=== PATIENT | male | born 1960 | race Caucasian/White ===

== ENCOUNTER 2018-12-18 10:29 | Emergency (ER) | payer SELFPAY ==
[~2018-12-18] VITALS: Ht 180.3 cm; Wt 95.3 kg
[2018-12-18] MEDS ORDERED: CEPHALEXIN 250 MG CAPSULE. PO STA (11:07)
[2018-12-18] MEDS ORDERED: IV NORMAL SALINE 1000ML BAG 1,000 ML IV ONE (11:15)
[2018-12-18] MEDS ORDERED: HYDROcodone/APAP 5/325MG 1 TAB TABLET PO ONE (11:15)
--- NOTE | 2018-12-18 11:18 | PHYS DOC ---
Past Medical History Past Medical History: Other Additional Past Medical Histor: Brain tumor,jaw fx,R)f.a.fx,multiple hernias Past Surgical History: Other Additional Past Surgical Histo: Fx.R)forearm Alcohol Use: Heavy Drug Use: None Adult General Chief Complaint Chief Complaint: OTHER COMPLAINTS HPI HPI Patient is a 58 year old male who presents with many complaints. He is very talkative and rambling. He states his feet hurt and that he wants pain meds. He also states that he has a brain tumor, CHF, a hiatal hernia and that is dying. He is not being treated for these conditions and is not taking any medications. Pt states he is currently detoxing from alcohol. His last drink was 3 days ago. He denies any seizures, CP or SOA. Review of Systems Review of Systems Constitutional: Denies fever or chills [] Eyes: Denies change in visual acuity, redness, or eye pain [] HENT: Denies nasal congestion or sore throat [] Respiratory: Denies cough or shortness of breath [] Cardiovascular: No additional information not addressed in HPI [] GI: Denies abdominal pain, nausea, vomiting, bloody stools or diarrhea [] : Denies dysuria or hematuria [] Musculoskeletal: Denies back pain or joint pain, complains of foot pain [] Integument: Denies rash or skin lesions [] Neurologic: Denies headache, focal weakness or sensory changes [] Endocrine: Denies polyuria or polydipsia [] All other systems were reviewed and found to be within normal limits, except as documented in this note. Current Medications Current Medications Current Medications Medications (Trade) Dose Ordered Sig/Sebastien Start Time Stop Time Status Last Admin Dose Admin Acetaminophen/ Hydrocodone Bitart (Lortab 5/325) 2 tab 1X ONCE 12/18/18 11:15 12/18/18 11:27 DC 12/18/18 12:10 2 TAB Cephalexin HCl (Keflex) 500 mg 1X STAT 12/18/18 11:07 12/18/18 11:27 DC 12/18/18 12:11 500 MG Lorazepam (Ativan) 1 mg 1X ONCE 12/18/18 11:15 12/18/18 11:27 DC 12/18/18 12:10 1 MG Sodium Chloride 1,000 ml @ 1,000 mls/hr 1X ONCE 12/18/18 11:15 4/1/19 12:14 DC 12/18/18 12:08 1,000 MLS/HR Allergies Allergies Allergies Coded Allergies Type Severity Reaction Last Updated Verified No Known Drug Allergies 12/18/18 No Physical Exam Physical Exam Constitutional: Well developed disheveled and malodorous slurred speech consistent with known alcohol intoxication HENT: Normocephalic, atraumatic, bilateral external ears normal, oropharynx moist, no oral exudates, nose normal. [] Eyes: PERRLA, EOMI, conjunctiva normal, no discharge. [] Neck: Normal range of motion, no tenderness, supple, no stridor. [] Cardiovascular:Heart rate regular rhythm, no murmur [] Lungs & Thorax: Bilateral breath sounds clear to auscultation [] Abdomen: oft, no tenderness, no masses, no pulsatile masses. [] Skin: Warm, dry, no erythema, no rash. [] Back: No tenderness, no CVA tenderness. [] Extremities: There is edema appears chronic and bilateral as well as some erythema and bilateral feet malodorous trench foot findings noted pulses present Neurologic: Alert and oriented X 3, normal motor function, normal sensory function, no focal deficits noted. []Slurred speech otherwise intact gait Psychologic: Some rambling but is redirectable Current Patient Data Vital Signs Vital Signs Date Time Temp Pulse Resp B/P (MAP) Pulse Ox O2 Delivery O2 Flow Rate FiO2 12/18/18 15:17 78 17 106/66 (79) 94 Room Air 12/18/18 14:47 3.0 12/18/18 10:30 98.1 98.1 Lab Values Laboratory Tests Test 12/18/18 11:30 White Blood Count 3.6 x10^3/uL (4.0-11.0) L Red Blood Count 3.78 x10^6/uL (4.30-5.70) L Hemoglobin 12.5 g/dL (13.0-17.5) L Hematocrit 36.6 % (39.0-53.0) L Mean Corpuscular Volume 97 fL (79-100) Mean Corpuscular Hemoglobin 33 pg (25-35) Mean Corpuscular Hemoglobin Concent 34 g/dL (31-37) Red Cell Distribution Width 15.4 % (11.5-14.5) H Platelet Count 75 x10^3/uL (140-400) L Neutrophils (%) (Auto) 57 % (31-73) Lymphocytes (%) (Auto) 25 % (24-48) Monocytes (%) (Auto) 15 % (0-9) H Eosinophils (%) (Auto) 2 % (0-3) Basophils (%) (Auto) 1 % (0-3) Neutrophils # (Auto) 2.1 x10^3uL (1.8-7.7) Lymphocytes # (Auto) 0.9 x10^3/uL (1.0-4.8) L Monocytes # (Auto) 0.5 x10^3/uL (0.0-1.1) Eosinophils # (Auto) 0.1 x10^3/uL (0.0-0.7) Basophils # (Auto) 0.0 x10^3/uL (0.0-0.2) Sodium Level 139 mmol/L (136-145) Potassium Level 3.5 mmol/L (3.5-5.1) Chloride Level 100 mmol/L (98-107) Carbon Dioxide Level 26 mmol/L (21-32) Anion Gap 13 (6-14) Blood Urea Nitrogen 4 mg/dL (8-26) L Creatinine 0.6 mg/dL (0.7-1.3) L Estimated GFR (Cockcroft-Gault) 139.4 BUN/Creatinine Ratio 7 (6-20) Glucose Level 106 mg/dL (70-99) H Calcium Level 8.5 mg/dL (8.5-10.1) Total Bilirubin 0.8 mg/dL (0.2-1.0) Aspartate Amino Transferase (AST) 77 U/L (15-37) H Alanine Aminotransferase (ALT) 46 U/L (16-63) Alkaline Phosphatase 104 U/L (46-116) Total Protein 7.0 g/dL (6.4-8.2) Albumin 3.5 g/dL (3.4-5.0) Albumin/Globulin Ratio 1.0 (1.0-1.7) Ethyl Alcohol Level 380 mg/dL (0-10) H Laboratory Tests 12/18/18 11:30 Laboratory Tests 12/18/18 11:30 EKG EKG [] Radiology/Procedures Radiology/Procedures Head CT[] Impressions: IMPRESSION: No evidence of acute intracranial hemorrhage or mass effect. Note that for evaluation of reported brain tumor, MRI of the brain would be necessary, as CT is relatively insensitive. Course & Med Decision Making Course & Med Decision Making Pertinent Labs and Imaging studies reviewed. (See chart for details) []58-year-old male homeless with alcohol abuse has some evidence of trench foot on examination. I offered a mcc we did have a social work therapist be called by nursing staff in [facility] [place] was available but patient declined he will be provided with a bus token and was counseled on the importance of alcohol cessation I offered him Librium he also declined that. He says he has not had alcohol withdrawal seizures before so I think is okay for trial of outpatient management. Keflex was prescribed as well for possible cellulitis of bilateral lower extremities and a calcium on the importance of keeping his feet clean and dry as best as possible given his living circumstances. Of note he did tell me that he was dying and he had a brain tumor and neither of those things are pending at this time his vitals are stable CT head was negative. Dragon Disclaimer Dragon Disclaimer This electronic medical record was generated, in whole or in part, using a voice recognition dictation system. Departure Departure Impression: Primary Impression: Cellulitis Additional Impression: Alcohol abuse Disposition: 01 HOME, SELF-CARE Condition: STABLE Scripts Cephalexin (CEPHALEXIN) 500 Mg Capsule 1 CAP PO QID, #40 CAP Prov: LAN ESTRELLA MD 12/18/18 Problem Qualifiers LAN ESTRELLA MD Dec 18, 2018 11:18
[2018-12-18 11:46] LABS: BASO % 1 % (0-3); EOS # 0.1 x10^3/uL (0.0-0.7); EOS % 2 % (0-3); HEMATOCRIT 36.6 % (39.0-53.0); HEMOGLOBIN 12.5 g/dL (13.0-17.5); LYMPH # 0.9 x10^3/uL (1.0-4.8); LYMPH % 25 % (24-48); MEAN CORPUSCULAR HEMOGLOBIN 33 pg (25-35); MEAN CORPUSCULAR HGB CONC 34 g/dL (31-37); MEAN CORPUSCULAR VOLUME 97 fL (79-100); MONO # 0.5 x10^3/uL (0.0-1.1); MONO % 15 % (0-9); NEUT # 2.1 x10^3uL (1.8-7.7); NEUT % 57 % (31-73); PLATELET COUNT 75 x10^3/uL (140-400); RED BLOOD COUNT 3.78 x10^6/uL (4.30-5.70); RED CELL DISTRIBUTION WIDTH 15.4 % (11.5-14.5); WHITE BLOOD COUNT 3.6 x10^3/uL (4.0-11.0)
[2018-12-18 12:07] LABS: CALCIUM 8.5 mg/dL (8.5-10.1); CREATININE 0.6 mg/dL (0.7-1.3); GFR 139.4; POTASSIUM 3.5 mmol/L (3.5-5.1)
--- NOTE | 2018-12-18 12:19 | RAD ---
CT HEAD WO CONTRAST Indication: headache, reported hx of brain tumor Exposure: One or more of the following individualized dose reduction techniques were utilized for this examination: 1. Automated exposure control 2. Adjustment of the mA and/or kV according to patient size 3. Use of iterative reconstruction technique. Technique: Standard imaging without intravenous contrast. Comparison: None No evidence of acute intracranial hemorrhage, mass effect, midline shift or abnormal extra-axial fluid collection. The ventricles and sulci are mildly prominent, compatible with mild generalized atrophy or involutional change. Feng-white matter distinction is intact. Orbits appear unremarkable. No evidence of large scalp hematoma. Partially included sinuses are clear. No acute skull abnormality. IMPRESSION: No evidence of acute intracranial hemorrhage or mass effect. Note that for evaluation of reported brain tumor, MRI of the brain would be necessary, as CT is relatively insensitive. Electronically signed by: Claude Solitario MD (12/18/2018 12:16 PM) [id number]
[2018-12-18 12:22] LABS: ALBUMIN 3.5 g/dL (3.4-5.0); TOTAL BILIRUBIN 0.8 mg/dL (0.2-1.0)
[2018-12-18] MEDS ORDERED: CEPH500C PO (12:45)
[2018-12-18 16:44] LABS: BILIRUBIN,URINE NEGATIVE (NEG); CLARITY,URINE CLEAR; COLOR,URINE YELLOW; NITRITE,URINE NEGATIVE (NEG); PROTEIN,URINE NEGATIVE (NEG-TRACE); UROBILINOGEN,URINE 0.2 mg/dL (0.2 mg/dL)
[2018-12-18 16:49] LABS: BACTERIA,URINE 0 /HPF (0-FEW); RBC,URINE 0 /HPF (0-2); WBC,URINE 0 /HPF (0-4)
[2018-12-18 16:51] LABS: BARBITURATES NEG (NEG); BENZODIAZEPINES NEG (NEG); CANNABINOIDS NEG (NEG); COCAINE NEG (NEG); METHADONE NEG (NEG); OPIATES POS (NEG); PHENCYCLIDINE NEG (NEG)
[2018-12-18 16:55] LABS: AMPHETAMINE/METHAMPHETAMINE NEG (NEG)
[2018-12-18 17:00] VITALS: BP 108/62
== END 2018-12-18 16:48 | disposition home or self-care (01) ==
LOC: ER 10:29
DX: L03.116 Cellulitis of left lower limb (principal); L03.115 Cellulitis of right lower limb; T69.022A Immersion foot, left foot, initial encounter; T69.021A Immersion foot, right foot, initial encounter; D49.6 Neoplasm of unspecified behavior of brain; I50.9 Heart failure, unspecified; K44.9 Diaphragmatic hernia without obstruction or gangrene; R47.81 Slurred speech; F10.20 Alcohol dependence, uncomplicated; Y90.8 Blood alcohol level of 240 mg/100 ml or more
CPT/HCPCS: 36415; 70450; 80053; 80307; 81001; 85025; 96374; 99284; G0480; J2060; J7030